=== PATIENT | female | born 1990 | race African-American/Black ===

== ENCOUNTER 2017-02-23 19:33 | Emergency (ER) | payer MEDICAID ==
[2017-02-23] MEDS ORDERED: MECLIZINE HCL 25 MG TABLET PO ONE (20:24)
--- NOTE | 2017-02-23 20:26 | ER Document Report ---
ED Medical Screen (RME) - General Chief Complaint: Dizziness Stated Complaint: DIZZY Notes: This 26-year-old female patient who is 36 weeks reports one to 2 day history of some low back pain and dizzy sensation. She also noticed some vaginal discharge that is new which she thinks maybe her mucous plug. While at work today at [employer] she felt hot, but reports other prescription also complained about it being hot they gave her a belt to put on which she wore for while but it made her feel suffocated so she took it off and felt a little better. She noticed when standing up she would feel weak, feel fainting and felt the need to go to the window to get fresh air. Then she got a headache. She checked her blood sugar and it was fine. She does notice that standing up tends to bring on the symptoms of lightheadedness and feeling like her head is all over the place. When I have her look up-and-down [id number] rapidly it makes the symptoms much worse and causes some nystagmus. I have greeted and performed a rapid initial assessment of this patient. A comprehensive ED assessment and evaluation of the patient, analysis of test results and completion of the medical decision making process will be conducted by additional ED providers. TRAVEL OUTSIDE OF THE [place] IN LAST 30 DAYS: No - Related Data Allergies/Adverse Reactions: Penicillins Allergy (Intermediate, Verified 02/23/17 20:05) Hives Home Medications: Current Home Medications Ferrous Sulfate [Iron] 325 mg PO DAILY 02/23/17 [History] Vit W-Ca,Fe,FA(<1 mg) [ Vitamins] 1 each PO DAILY 02/23/17 [ History] Past Medical History Renal/ Medical History: Denies: Hx Peritoneal Dialysis Physical Exam - Vital signs Vitals: Temp Pulse Resp BP Pulse Ox 98.6 F 106 H 20 127/83 H 99 02/23/17 20:05 02/23/17 20:05 02/23/17 20:05 02/23/17 20:05 02/23/17 20:05 Course - Vital Signs Vital signs: Temp Pulse Resp BP Pulse Ox 98.6 F 106 H 20 127/83 H 99 02/23/17 20:05 02/23/17 20:05 02/23/17 20:05 02/23/17 20:05 02/23/17 20:05
[2017-02-23 21:00] LABS: ABSOLUTE LYMPHOCYTES (AUTO) 1.6 10^3/uL (0.5-4.7); ABSOLUTE MONOCYTES (AUTO) 0.8 10^3/uL (0.1-1.4); ABSOLUTE NEUT (AUTO) 8.3 10^3/uL (1.7-8.2); BASOPHILS % (AUTO) 0.3 % (0-2); EOSINOPHILS % (AUTO) 0.1 % (0-6); HEMATOCRIT 37.6 % (36.0-47.0); HGB HCT DIFFERENCE 1.4; LYMPHOCYTES % (AUTO) 14.7 % (13-45); MEAN CORPUSCULAR HEMOGLOBIN 29.2 pg (27.0-33.4); MEAN CORPUSCULAR HGB CONC 34.4 g/dL (32.0-36.0); MEAN CORPUSCULAR VOLUME 85 fl (80-97); MONOCYTES % (AUTO) 7.6 % (3-13); RED BLOOD COUNT 4.43 10^6/uL (3.72-5.28); SEGMENTED NEUTROPHILS % (AUTO) 77.3 % (42-78); WHITE BLOOD COUNT 10.7 10^3/uL (4.0-10.5)
[2017-02-23 21:01] LABS: APPEARANCE,URINE SLIGHTLY-CLOUDY; BILIRUBIN,URINE NEGATIVE (NEGATIVE); GLUCOSE, URINE NEGATIVE (NEGATIVE); KETONES,URINE NEGATIVE (NEGATIVE); LEUKOCYTE ESTERASE,URINE LARGE (NEGATIVE); NITRITE,URINE NEGATIVE (NEGATIVE); PROTEIN,URINE NEGATIVE (NEGATIVE); URINE SPECIFIC GRAVITY 1.006; UROBILINOGEN,URINE NEGATIVE mg/dL (<2.0)
[2017-02-23 21:12] LABS: ALANINE AMINOTRANSFERASE 17 U/L (9-52); ALKALINE PHOSPHATASE 106 U/L (38-126); ANION GAP 12 (5-19); ASPARTATE AMINO TRANSFERASE 16 U/L (14-36); BILIRUBIN,DIRECT 0.1 mg/dL (0.0-0.4); BILIRUBIN,TOTAL 0.3 mg/dL (0.2-1.3); BLOOD UREA NITROGEN 7 mg/dL (7-20); CALCIUM 9.6 mg/dL (8.4-10.2); CARBON DIOXIDE 19 mmol/L (22-30); CHLORIDE 105 mmol/L (98-107); CREATININE RESULT 0.54 mg/dL (0.52-1.25); GLUCOSE 87 mg/dL (75-110); POTASSIUM 4.6 mmol/L (3.6-5.0); SODIUM 136.1 mmol/L (137-145)
[2017-02-23] MEDS ORDERED: NORMAL SALINE 1000 ML 1,000 ML IV ONE (21:32)
--- NOTE | 2017-02-23 23:54 | ER Document Report ---
ED General - General Chief Complaint: Dizziness Stated Complaint: DIZZY Mode of Arrival: Ambulatory Information source: Patient Notes: 26 y/o F presents to ED c/o intermittently persistent lower back pain over the last 2 days. Reports associated dizziness worse with changing position from sitting to standing and after prolonged standing. States symptoms have been more noticeable while at work today. Reports is approximately 36 weeks , G1. States does not drink much fluids during the day. Denies fever, n/v, abd/ pelvic pain, vaginal bleeding. TRAVEL OUTSIDE OF THE [place] IN LAST 30 DAYS: No - HPI Onset/Duration: Intermittent, Persistent Quality of pain: Achy Severity: Mild Pain Level: 2 Exacerbated by: Standing Relieved by: Sitting Similar symptoms previously: Yes Recently seen / treated by doctor: No - Related Data Allergies/Adverse Reactions: Penicillins Allergy (Intermediate, Verified 02/24/17 16:17) Hives Home Medications: Current Home Medications Ferrous Sulfate [Iron] 325 mg PO DAILY 02/23/17 [History] Vit W-Ca,Fe,FA(<1 mg) [ Vitamins] 1 each PO DAILY 02/23/17 [ History] Past Medical History - General Information source: Patient - Social History Smoking Status: Never Smoker Frequency of alcohol use: None Drug Abuse: None Lives with: Family Family History: Reviewed & Not Pertinent Patient has suicidal ideation: No Patient has homicidal ideation: No - Medical History Medical History: Negative Renal/ Medical History: Denies: Hx Peritoneal Dialysis Surgical Hx: Negative - Immunizations Immunizations up to date: Yes Hx Diphtheria, Pertussis, Tetanus Vaccination: Yes Review of Systems - Review of Systems Constitutional: No symptoms reported EENT: No symptoms reported Cardiovascular: No symptoms reported Respiratory: No symptoms reported Gastrointestinal: No symptoms reported Genitourinary: No symptoms reported Female Genitourinary: See HPI Musculoskeletal: See HPI Skin: No symptoms reported Hematologic/Lymphatic: No symptoms reported Neurological/Psychological: See HPI -: Yes All other systems reviewed and negative Physical Exam - Vital signs Vitals: Temp Pulse Resp BP Pulse Ox 98.6 F 106 H 20 127/83 H 99 02/23/17 20:05 02/23/17 20:05 02/23/17 20:05 02/23/17 20:05 02/23/17 20:05 - General General appearance: Appears well, Alert In distress: None - HEENT Head: Normocephalic, Atraumatic Eyes: Normal Conjunctiva: Normal Extraocular movements intact: Yes Eyelashes: Normal Pupils: PERRL Nerve palsy: No Visual montes normal: Yes Ears: Normal External canal: Normal Tympanic membrane: Normal Sinus: Normal Nasal: Normal Mouth/Lips: Normal Mucous membranes: Normal, Moist Pharynx: Normal Neck: Normal - Respiratory Respiratory status: No respiratory distress Chest status: Nontender Breath sounds: Normal Chest palpation: Normal - Cardiovascular Rhythm: Regular Heart sounds: Normal auscultation Murmur: No Pulses: Normal: Radial, Posterior tibial, Dorsalis pedis Normal capillary refill: Yes - Abdominal Inspection: Normal, Gravid female Distension: No distension Bowel sounds: Normal Tenderness: Nontender. No: Tender, McBurney's point, Iqbal's sign, Guarding, Rebound, Other Organomegaly: No organomegaly - Back Back: Tender - mild tenderness with palpation to bilateral paraspinal musculature at lumbar level. Full ROM without paresthesias or neurologica deficits.. No: Normal, Nontender, Deformity/step-off, CVA tenderness, Vertebra tenderness, Scars, Scoliosis, Wounds, Other - Extremities General upper extremity: Normal inspection, Nontender, Normal color, Normal ROM , Normal strength, Normal temperature. No: Edema General lower extremity: Normal inspection, Nontender, Normal color, Normal ROM , Normal strength, Normal temperature, Normal weight bearing. No: Edema, Pravin' s sign - Neurological Neuro grossly intact: Yes Cognition: Normal Orientation: AAOx4 [place] Coma Scale Eye Opening: Spontaneous Madi Coma Scale Verbal: Oriented Madi Coma Scale Motor: Obeys Commands [place] Coma Scale Total: 15 Speech: Normal Cranial nerves: Normal Cerebellar coordination: Normal Motor strength normal: LUE, RUE, LLE, RLE Additional motor exam normals: Equal photographer helper Sensory: Normal - Psychological Associated symptoms: Normal affect, Normal mood - Skin Skin Temperature: Warm Skin Moisture: Dry Skin Color: Normal Course - Re-evaluation Re-evalutation: 02/23/17 23:30 Pt hemodynamically stable, in no distress, afebrile, non-toxic. Leukocyte esterase and wbc's on Ua. Urine culture obtained. Pt was given 1L NS states feels much better and dizziness resolved. Orthostatic negative. Pt tolerating oral fluids without difficulty or vomiting. Pt states reports has appointment with her Ob-Rouge Miller tomorrow. Pt appears stable for discharge and agrees with home care, follow-up, and ED return precautions. - Vital Signs Vital signs: Temp Pulse Resp BP Pulse Ox 97.6 F 65 16 122/88 H 96 02/24/17 00:22 02/24/17 00:22 02/24/17 00:22 02/24/17 00:22 02/24/17 00:22 - Laboratory Result Diagrams: 02/23/17 20:44 02/23/17 20:44 Laboratory results interpreted by me: 02/23/17 02/23/17 02/23/17 20:44 20:44 20:44 WBC 10.7 H Absolute Neutrophils 8.3 H Sodium 136.1 L Carbon Dioxide 19 L Ur Leukocyte Esterase LARGE H Discharge - Discharge Clinical Impression: Dizziness UTI (urinary tract infection) Qualifiers: Urinary tract infection type: site unspecified Hematuria presence: without hematuria Qualified Code(s): N39.0 - Urinary tract infection, site not specified Condition: Stable Disposition: HOME, SELF-CARE Instructions: Urinary Tract Infection ([facility]), Dizziness ([facility]), Cephalexin ([facility]) , Dehydration ([facility]) Additional Instructions: Drink plenty of fluids. Keep your appointment and follow-up with your primary care provider/Ob-Rouge Miller tomorrow. Return to the emergency department for any worsening symptoms or concerns. Forms: Return to Work Referrals: HUDSON AGUILERA MD [Primary Care Provider] - Follow up tomorrow
[2017-02-24 00:23] VITALS: BP 122/88
== END 2017-02-24 00:22 | disposition home or self-care (01) ==
LOC: ER 19:33
DX: R42 Dizziness and giddiness (principal); N39.0 Urinary tract infection, site not specified; M54.5 Low back pain; Z88.0 Allergy status to penicillin
CPT/HCPCS: 99284; 96360; 36415; 87086; 85025; 80053; 81001; J7030

== ENCOUNTER 2017-02-24 16:16 | Outpatient (CLI) | payer MEDICAID ==
--- NOTE | 2017-02-24 17:25 | Non Stress Test Report ---
Non Stress Test Datetime Report Generated by CPN: 02/24/2017 17:25 DEMOGRAPHIC EGA NST: 36.5 INDICATION Indication for Study: Other Indication for Study (NST) Other: GDM MONITORING Monitor Explained: Monitor Explained; Test Explained; Patient Verbalized Understanding Time on Monitor: 02/24/2017 17:04 Time off Monitor: 02/24/2017 17:24 NST Duration: 20 NST INTERVENTIONS NST Interventions: PO Hydration; Reposition Patient Physician Notified NST: Dr Sims BABY A: [id number] BABY A Movement : Present Contraction Frequency : none FHR Baseline : 125 Accelerations : 15X15 Decelerations : None Variability : Moderate 6-25bpm NST Review: Meets Criteria for Reactive NST NST Review and Verified By : ABjorn Chelsea RN NST Results: Reactive NST REPORT Report Trigger: Send Report
--- NOTE | 2017-02-24 20:30 | L&D Discharge Summary ---
OB Discharge Summary Datetime Report Generated by CPN: 02/24/2017 20:30 DISCHARGE DIAGNOSIS Diagnoses/Symptoms Other: Reactive NST Number of Babies in Womb: 1 Parity: 0 DIET/ACTIVITY/RESTRICTIONS Diet: Regular Activity: Normal Activity TEACHING/INSTRUCTIONS/REFERRALS Instructions Given To: Patient/FOB Instructions Understood: Patient Verbalized Understanding; Support Person Verbalized Understanding Referrals: None Educational Materials- Other: Kick counts DISCHARGE INFORMATION Discharged AMA: No Discharge Date/Time: 02/24/2017 17:28 Discharged To: Home Discharge Provider Name: Dr Sims Accompanied By: FOB Discharge Method: Ambulatory Condition: Stable FOLLOW UP INFORMATION Follow Up With: [facility] Follow Up On: As Scheduled Follow Up Phone Number: [facility] -
--- NOTE | 2017-03-02 22:48 | L&D Discharge Summary ---
OB Discharge Summary Datetime Report Generated by CPN: 03/02/2017 22:45 DISCHARGE DIAGNOSIS Diagnoses/Symptoms Other: Reactive NST Gestation: 36.5 Number of Babies in Womb: 1 Parity: 0 DIET/ACTIVITY/RESTRICTIONS Diet: Regular Activity: Normal Activity TEACHING/INSTRUCTIONS/REFERRALS Instructions Given To: Patient/FOB Instructions Understood: Patient Verbalized Understanding; Support Person Verbalized Understanding Referrals: None Educational Materials- Other: Kick counts DISCHARGE INFORMATION Discharged AMA: No Discharge Date/Time: 02/24/2017 17:28 Discharged To: Home Discharge Provider Name: Dr Sims Accompanied By: FOB Discharge Method: Ambulatory Condition: Stable FOLLOW UP INFORMATION Follow Up With: [facility] Follow Up On: As Scheduled Follow Up Phone Number: [facility] -
--- NOTE | 2017-03-02 22:48 | L&D General Admission ---
General Admit Datetime Report Generated by CPN: 03/02/2017 22:45 INFORMATION Patient Age: 26 (01/27/2017 15:15:QS system process) EDC: 03/19/2017 00:00 (02/24/2017 15:06:Nelly Tran RN) : 1 (02/24/2017 15:06:Nelly Tran RN) Para: 0 (02/24/2017 15:06:Nelly Trna RN) Term: 0 (02/24/2017 15:06:Precious Iqbal RN) : 0 (02/24/2017 15:06:Precious Iqbal RN) Spontaneous Abortions: 0 (02/24/2017 15:06:Precious Iqbal RN) Induced Abortions: 0 (02/24/2017 15:06:Precious Iqbal RN) Livin (02/24/2017 15:06:Precious Iqbal RN) Cesareans: 0 (02/24/2017 15:06:Precious Iqbal RN) VBACs: 0 (02/24/2017 15:06:Precious Iqbal RN) Ectopic: 0 (02/24/2017 15:06:Precious Iqbal RN) Multiple Births: 0 (02/24/2017 15:06:Precious Iqbal RN) Baby, Number in Womb: 1 (02/24/2017 15:06:Precious Iqbal RN) CARE Primary City Attorney: [facility] [facility] (02/24/2017 15:06:Nelly Tran RN) Height (in): 65 (02/24/2017 16:18:QS system process) ALLERGIES Medication Allergy: Yes (02/24/2017 15:06:Nelly Tran RN) Medication Allergies: Penicillins/MO/Hives (02/24/2017) (02/24/2017 16:16:QS system process) Medication Allergies: Penicillins/MO/Hives (02/23/2017) (02/23/2017 20:05:QS system process) Latex Allergy: No Latex Allergies (02/24/2017 15:06:Nelly Tran RN) COMMUNICATION Primary Language: Nigerian (02/24/2017 15:06:Nelly Tran RN) Medical Tx Preferred Language: Nigerian (02/24/2017 15:06:Nelly Tran RN) DEMOGRAPHICS Address: [address] [place] [id number] (01/27/2017 15:15:QS system process) Zipcode: [id number] (01/27/2017 15:15:QS system process) Home (01/27/2017 15:15:QS system process) SSN: [id number] (01/27/2017 15:15:QS system process) Next of Kin Name: BRYAN NOBLE (01/27/2017 15:15:QS system process) Next of Kin (01/27/2017 15:15:QS system process) Next of Kin Relationship: OR (01/27/2017 15:15:QS system process) Date of : 1990 (01/27/2017 15:15:QS system process) Marital Status: Single (01/27/2017 15:15:QS system process) Sex: Female (01/27/2017 15:15:QS system process) Race: (01/27/2017 15:15:QS system process) Ethnicity: Non- or (01/27/2017 15:15:QS system process) Adventism: None (02/24/2017 16:16:QS system process) DRUG AND ALCOHOL USE Alcohol: No (02/24/2017 15:06:Precious Iqbal RN) Cigarettes: Never Smoker. [id number] (02/24/2017 15:06:Precious Iqbal RN) Marijuana: No (02/24/2017 15:06:Precious Iqbal RN) Cocaine: No (02/24/2017 15:06:Precious Iqbal RN) Other Illicit Drugs: No (02/24/2017 15:06:Precious Iqbal RN) VACCINE HISTORY Influenza Vaccine: No (02/24/2017 15:06:Precious Iqbal RN) Pneumococcal Vaccine: No (02/24/2017 15:06:Precious Iqbal RN) Tetanus Vaccine: Yes (02/24/2017 15:06:Precious Iqbal RN) Tdap Vaccine: Yes (02/24/2017 15:06:Precious Iqbal RN) Hepatitis B Vaccine: No (02/24/2017 15:06:Precious Iqbal RN) Feeding Preference: Formula (02/24/2017 15:06:Precious Iqbal RN) Benefit of Breast Feed Discussed: Yes (02/24/2017 15:06:Precious Iqbal RN) Circumcision: Yes (02/24/2017 15:06:Precious Iqbal RN) Classes Attended: No (02/24/2017 15:06:Precious Iqbal RN) Tubal Ligation: No (02/24/2017 15:06:Precious Iqbal RN) Tubal Authorization Signed: N/A (02/24/2017 15:06:Precious Iqbal RN) Consent: N/A (02/24/2017 15:06:Precious Iqbal RN) Consent Signed: N/A (02/24/2017 15:06:Precious Iqbal RN) Plans for Labor and Delivery: None (02/24/2017 15:06:Precious Iqbal RN) Support Person: Kennedy Flores (02/24/2017 15:06:Precious Iqbal RN) Support Person Relationship: Significant Other (02/24/2017 15:06:Precious Iqbal RN) Cultural/Spritual Practice: No (02/24/2017 15:06:Precious Iqbal RN) Spir/Cult Dietary Needs: No (02/24/2017 15:06:Precious Iqbal RN) LIVING SITUATION/DISCHARGE PLAN Living Arrangements: House (02/24/2017 15:06:Precious Iqbal RN) Adequate Access to:: Electric; Heat; Refrigeration; Plumbing/Running water; Phone; Transportation (02/24/2017 15:06:Precious Iqbal RN) WIC Program: Yes (02/24/2017 15:06:Precious Iqbal RN) Discharge Grip Boss Person: LEX (02/24/2017 15:06:Precious Iqbal RN) Person to Help after Discharge: LEX (02/24/2017 15:06:Precious Iqbal RN) Currently Using Commun Resources: No (02/24/2017 15:06:Precious Iqbal RN) Outside Agency/Logistics Intern: No (02/24/2017 15:06:Precious Iqbal RN) Car Seat for Discharge: Yes (02/24/2017 15:06:Precious Iqbal RN) Adoption Requested: No (02/24/2017 15:06:Precious Iqbal RN) Pt Contact w/infant Post : N/A (02/24/2017 15:06:Precious Iqbal RN) LABS Hemoglobin: 13.0 (02/23/2017 20:44:QS system process) Hematocrit: 37.6 (02/23/2017 20:44:QS system process) MCV: 85 (02/23/2017 20:44:QS system process) OB/PREVIOUS HISTORY Current Procedures: Ultrasound; NST (02/24/2017 15:06:Precious Iqbal RN) History of Previous : No (02/24/2017 15:06:Precious Iqbal RN) History of Gestational Diabetes: Yes (02/24/2017 15:06:Precious Iqbal RN) History of PIH: No (02/24/2017 15:06:Precious Iqbal RN) History of Incompetent Cervix: No (02/24/2017 15:06:Precious Iqbal RN) History of Placenta Previa/Abrup: No (02/24/2017 15:06:Precious Iqbal RN) History of Macrosomia: No (02/24/2017 15:06:Precious Iqbal RN) History of IUGR: No (02/24/2017 15:06:Precious Iqbal RN) History of Hemorrhage: No (02/24/2017 15:06:Precious Iqbal RN) History of Loss/Stillborn: No (02/24/2017 15:06:Precious Iqbal RN) History of : No (02/24/2017 15:06:Precious Iqbal RN) History of D (Rh) Sensitization: No (02/24/2017 15:06:Precious Iqbal RN) History Recurrent Loss/Stillborn: No (02/24/2017 15:06:Precious Iqbal RN) History Depression/PP Depression: No (02/24/2017 15:06:Precious Iqbal RN) History of Uterine Anomaly/JALEESA: No (02/24/2017 15:06:Precious Iqbal RN) History of Infertility: No (02/24/2017 15:06:Precious Iqbal RN) History of ART Treatment: No (02/24/2017 15:06:Precious Iqbal RN) History of JALEESA: No (02/24/2017 15:06:Precious Iqbal RN) Comments Obstetrical History: G1: current (02/24/2017 15:06:Precious Iqbal RN) MEDICAL HISTORY Med Hx Diabetes: Yes (02/24/2017 15:06:Precious Iqbal RN) Diabetes Type: Gestational Diabetes (02/24/2017 15:06:Precious Iqabl RN) Med Hx Hypertension: No (02/24/2017 15:06:Precious Iqbal RN) Med Hx Heart Disease: No (02/24/2017 15:06:Precious Iqbal RN) Med Hx Autoimmune Disorder: No (02/24/2017 15:06:Precious Iqbal RN) Med Hx Kidney Disease/UTI: No (02/24/2017 15:06:Precious Iqbal RN) Med Hx Neurologic/Epilepsy: No (02/24/2017 15:06:Precious Iqbal RN) Med Hx Psychiatric Disorders: No (02/24/2017 15:06:Precious Iqbal RN) Med Hx Hepatitis/Liver Disease: No (02/24/2017 15:06:Precious Iqbal RN) Med Hx Varicosities/Phlebitis: No (02/24/2017 15:06:Precious Iqbal RN) Med Hx Thyroid Dysfunction: No (02/24/2017 15:06:Precious Iqbal RN) Med Hx Trauma/Violence: No (02/24/2017 15:06:Precious Iqbal RN) Med Hx Blood Transfusion: No (02/24/2017 15:06:Precious Iqbal RN) Med Hx Pulmonary (Asthma,TB): No (02/24/2017 15:06:Precious Iqbal RN) Med Hx Breast: No (02/24/2017 15:06:Precious Iqbal RN) Med Hx CRUISE COUNSELOR Surgery: No (02/24/2017 15:06:Precious Iqbal RN) Med Hx Hospitalization/Surgery: No (02/24/2017 15:06:Precious Iqbal RN) Med Hx Anesthetic Complications: No (02/24/2017 15:06:Precious Iqbal RN) Med Hx Abnormal Pap Smear: No (02/24/2017 15:06:Precious Iqbal RN) Other Medical Diseases: No (02/24/2017 15:06:Precious Iqbal RN) Med Hx Significant Family Hx: No (02/24/2017 15:06:Precious Iqbal RN) INFECTIOUS HISTORY Inf Hx Gonorrhea: No (02/24/2017 15:06:Precious Iqbal RN) Inf Hx Chlamydia: No (02/24/2017 15:06:Precious Iqbal RN) Inf Hx Syphilis: No (02/24/2017 15:06:Precious Iqbal RN) Inf Hx HIV/AIDS: No (02/24/2017 15:06:Precious Iqbal RN) Inf Hx Human Papilloma Virus: No (02/24/2017 15:06:Precious Iqbal RN) Inf Hx Pt/Partner Genital Herpes: No (02/24/2017 15:06:Precious Iqbal RN) Inf Hx Tuberculosis/Exposure: No (02/24/2017 15:06:Precious Iqbal RN) Inf Hx Hepatitis B,C: No (02/24/2017 15:06:Precious Iqabl RN) Inf Hx Rash or Viral Illness: No (02/24/2017 15:06:Precious Iqbal RN) GENETIC HISTORY Gen Hx Age >=35 at ADRIANA: No (02/24/2017 15:06:Precious Iqbal RN) Gen Hx Thalassemia: No (02/24/2017 15:06:Precious Iqbal RN) Gen Hx Congenital Heart Defect: No (02/24/2017 15:06:Precious Iqbal RN) Gen Hx Neural Tube Defect: No (02/24/2017 15:06:Precious Iqbal RN) Gen Hx Down's Syndrome: No (02/24/2017 15:06:Precious Iqbal RN) Gen Hx Wang-Sachs: No (02/24/2017 15:06:Precious Iqbal RN) Gen Hx Toshia: No (02/24/2017 15:06:Precious Iqbal RN) Gen Hx Familial Dysautonomia: No (02/24/2017 15:06:Precious Iqbal RN) Gen Hx Sickle Cell Disease/Trait: No (02/24/2017 15:06:Precious Iqbal RN) Gen Hx Hemophilia/Blood Disorder: No (02/24/2017 15:06:Precious Iqbal RN) Gen Hx Muscular Dystrophy: No (02/24/2017 15:06:Precious Iqbal RN) Gen Hx Cystic Fibrosis: No (02/24/2017 15:06:Precious Iqbal RN) Gen Hx Huntingtons Chorea: No (02/24/2017 15:06:Precious Iqbal RN) Gen Hx Mental Retardation/Autism: No (02/24/2017 15:06:Precious Iqbal RN) Gen Hx Tested for Fragile X: No (02/24/2017 15:06:Precious Iqbal RN) Gen Hx Other Inher/Chromosomal: No (02/24/2017 15:06:Precious Iqbal RN) Gen Hx Maternal Metabolic DO: No (02/24/2017 15:06:Precious Iqbal RN) Gen Hx Pt Father or FOB Defect: No (02/24/2017 15:06:Precious Iqbal RN) Gen Hx Other Genetic History: No (02/24/2017 15:06:Precious Iqbal RN) Gen Hx Drugs/Meds since LMP: Yes (02/24/2017 15:06:Precious Iqbal RN) Gen Hx Medications: pnv, iron (02/24/2017 15:06:Precious Iqbal RN)
--- NOTE | 2017-03-03 04:48 | L&D General Admission ---
General Admit Datetime Report Generated by CPN: 03/03/2017 04:46 INFORMATION Patient Age: 26 (01/27/2017 15:15:QS system process) EDC: 03/19/2017 00:00 (02/24/2017 15:06:Nelly Tran RN) : 1 (02/24/2017 15:06:Nelly Tran RN) Para: 0 (02/24/2017 15:06:Nelly Tran RN) Term: 0 (02/24/2017 15:06:Precious Iqbal RN) : 0 (02/24/2017 15:06:Precious Iqbal RN) Spontaneous Abortions: 0 (02/24/2017 15:06:Precious Iqbal RN) Induced Abortions: 0 (02/24/2017 15:06:Precious Iqbal RN) Livin (02/24/2017 15:06:Precious Iqbal RN) Cesareans: 0 (02/24/2017 15:06:Precious Iqbal RN) VBACs: 0 (02/24/2017 15:06:Precious Iqbal RN) Ectopic: 0 (02/24/2017 15:06:Precious Iqbal RN) Multiple Births: 0 (02/24/2017 15:06:Precious Iqbal RN) Baby, Number in Womb: 1 (02/24/2017 15:06:Precious Iqbal RN) CARE Primary Hardboard Panel Printer: [employer] (02/24/2017 15:06:Nelly Tran RN) Height (in): 65 (02/24/2017 16:18:QS system process) ALLERGIES Medication Allergy: Yes (02/24/2017 15:06:Nelly Tran RN) Medication Allergies: Penicillins/MO/Hives (02/24/2017) (02/24/2017 16:16:QS system process) Medication Allergies: Penicillins/MO/Hives (02/23/2017) (02/23/2017 20:05:QS system process) Latex Allergy: No Latex Allergies (02/24/2017 15:06:Nelly Tran RN) COMMUNICATION Primary Language: Mozambican (02/24/2017 15:06:Nelly Tran RN) Medical Tx Preferred Language: Mozambican (02/24/2017 15:06:Nelly Tran RN) DEMOGRAPHICS Address: [address] [place] [id number] (01/27/2017 15:15:QS system process) Zipcode: [address] (01/27/2017 15:15:QS system process) Home (01/27/2017 15:15:QS system process) SSN: [id number] (01/27/2017 15:15:QS system process) Next of Kin Name: BRYAN NOBLE (01/27/2017 15:15:QS system process) Next of Kin (01/27/2017 15:15:QS system process) Next of Kin Relationship: OR (01/27/2017 15:15:QS system process) Date of : 1990 (01/27/2017 15:15:QS system process) Marital Status: Single (01/27/2017 15:15:QS system process) Sex: Female (01/27/2017 15:15:QS system process) Race: (01/27/2017 15:15:QS system process) Ethnicity: Non- or (01/27/2017 15:15:QS system process) Druze: None (02/24/2017 16:16:QS system process) DRUG AND ALCOHOL USE Alcohol: No (02/24/2017 15:06:Precious Iqbal RN) Cigarettes: Never Smoker. [id number] (02/24/2017 15:06:Precious Iqbal RN) Marijuana: No (02/24/2017 15:06:Precious Iqbal RN) Cocaine: No (02/24/2017 15:06:Precious Iqbal RN) Other Illicit Drugs: No (02/24/2017 15:06:Precious Iqbal RN) VACCINE HISTORY Influenza Vaccine: No (02/24/2017 15:06:Precious Iqbal RN) Pneumococcal Vaccine: No (02/24/2017 15:06:Precious Iqbal RN) Tetanus Vaccine: Yes (02/24/2017 15:06:Precious Iqbal RN) Tdap Vaccine: Yes (02/24/2017 15:06:Precious Iqbal RN) Hepatitis B Vaccine: No (02/24/2017 15:06:Precious Iqbal RN) Feeding Preference: Formula (02/24/2017 15:06:Precious Iqbal RN) Benefit of Breast Feed Discussed: Yes (02/24/2017 15:06:Precious Iqbal RN) Circumcision: Yes (02/24/2017 15:06:Precious Iqbal RN) Classes Attended: No (02/24/2017 15:06:Precious Iqbal RN) Tubal Ligation: No (02/24/2017 15:06:Precious Iqbal RN) Tubal Authorization Signed: N/A (02/24/2017 15:06:Precious Iqbal RN) Consent: N/A (02/24/2017 15:06:Precious Iqbal RN) Consent Signed: N/A (02/24/2017 15:06:Precious Iqbal RN) Plans for Labor and Delivery: None (02/24/2017 15:06:Precious Iqbal RN) Support Person: Kennedy Flores (02/24/2017 15:06:Precious Iqbal RN) Support Person Relationship: Significant Other (02/24/2017 15:06:Precious Iqbal RN) Cultural/Spritual Practice: No (02/24/2017 15:06:Precious Iqbal RN) Spir/Cult Dietary Needs: No (02/24/2017 15:06:Precious Iqbal RN) LIVING SITUATION/DISCHARGE PLAN Living Arrangements: House (02/24/2017 15:06:Precious Iqbal RN) Adequate Access to:: Electric; Heat; Refrigeration; Plumbing/Running water; Phone; Transportation (02/24/2017 15:06:Precious Iqbal RN) WIC Program: Yes (02/24/2017 15:06:Precious Iqbal RN) Discharge Soaker Hides Person: LEX (02/24/2017 15:06:Precious Iqbal RN) Person to Help after Discharge: LEX (02/24/2017 15:06:Precious Iqbal RN) Currently Using Commun Resources: No (02/24/2017 15:06:Precious Iqbal RN) Outside Agency/Radio Assembler: No (02/24/2017 15:06:Precious Iqbal RN) Car Seat for Discharge: Yes (02/24/2017 15:06:Precious Iqbal RN) Adoption Requested: No (02/24/2017 15:06:Precious Iqbal RN) Pt Contact w/infant Post : N/A (02/24/2017 15:06:Precious Iqbal RN) LABS Hemoglobin: 13.0 (02/23/2017 20:44:QS system process) Hematocrit: 37.6 (02/23/2017 20:44:QS system process) MCV: 85 (02/23/2017 20:44:QS system process) OB/PREVIOUS HISTORY Current Procedures: Ultrasound; NST (02/24/2017 15:06:Precious Iqbal RN) History of Previous : No (02/24/2017 15:06:Precious Iqbal RN) History of Gestational Diabetes: Yes (02/24/2017 15:06:Precious Iqbal RN) History of PIH: No (02/24/2017 15:06:Precious Iqbal RN) History of Incompetent Cervix: No (02/24/2017 15:06:Precious Iqbal RN) History of Placenta Previa/Abrup: No (02/24/2017 15:06:Precious Iqbal RN) History of Macrosomia: No (02/24/2017 15:06:Precious Iqbal RN) History of IUGR: No (02/24/2017 15:06:Precious Iqbal RN) History of Hemorrhage: No (02/24/2017 15:06:Precious Iqbal RN) History of Loss/Stillborn: No (02/24/2017 15:06:Precious Iqbal RN) History of : No (02/24/2017 15:06:Precious Iqbal RN) History of D (Rh) Sensitization: No (02/24/2017 15:06:Precious Iqbal RN) History Recurrent Loss/Stillborn: No (02/24/2017 15:06:Precious Iqbal RN) History Depression/PP Depression: No (02/24/2017 15:06:Precious Iqbal RN) History of Uterine Anomaly/JALEESA: No (02/24/2017 15:06:Preciosu Iqbal RN) History of Infertility: No (02/24/2017 15:06:Precious Iqbal RN) History of ART Treatment: No (02/24/2017 15:06:Precious Iqbal RN) History of JALEESA: No (02/24/2017 15:06:Precious Iqbal RN) Comments Obstetrical History: G1: current (02/24/2017 15:06:Precious Iqbal RN) MEDICAL HISTORY Med Hx Diabetes: Yes (02/24/2017 15:06:Precious Iqbal RN) Diabetes Type: Gestational Diabetes (02/24/2017 15:06:Precious Iqbal RN) Med Hx Hypertension: No (02/24/2017 15:06:Precious Iqbal RN) Med Hx Heart Disease: No (02/24/2017 15:06:Precious Iqbal RN) Med Hx Autoimmune Disorder: No (02/24/2017 15:06:Precious Iqbal RN) Med Hx Kidney Disease/UTI: No (02/24/2017 15:06:Precious Iqbal RN) Med Hx Neurologic/Epilepsy: No (02/24/2017 15:06:Prceious Iqbal RN) Med Hx Psychiatric Disorders: No (02/24/2017 15:06:Precious Iqbal RN) Med Hx Hepatitis/Liver Disease: No (02/24/2017 15:06:Precious Iqbal RN) Med Hx Varicosities/Phlebitis: No (02/24/2017 15:06:Precious Iqbal RN) Med Hx Thyroid Dysfunction: No (02/24/2017 15:06:Precious Iqbal RN) Med Hx Trauma/Violence: No (02/24/2017 15:06:Precious Iqbal RN) Med Hx Blood Transfusion: No (02/24/2017 15:06:Precious Iqbal RN) Med Hx Pulmonary (Asthma,TB): No (02/24/2017 15:06:Precious Iqbal RN) Med Hx Breast: No (02/24/2017 15:06:Precious Iqbal RN) Med Hx LOCKSTITCH FRONT MAKER Surgery: No (02/24/2017 15:06:Precious Iqbal RN) Med Hx Hospitalization/Surgery: No (02/24/2017 15:06:Precious Iqbal RN) Med Hx Anesthetic Complications: No (02/24/2017 15:06:Precious Iqbal RN) Med Hx Abnormal Pap Smear: No (02/24/2017 15:06:Precious Iqbal RN) Other Medical Diseases: No (02/24/2017 15:06:Precious Iqbal RN) Med Hx Significant Family Hx: No (02/24/2017 15:06:Precious Iqbal RN) INFECTIOUS HISTORY Inf Hx Gonorrhea: No (02/24/2017 15:06:Precious Iqbal RN) Inf Hx Chlamydia: No (02/24/2017 15:06:Precious Iqbal RN) Inf Hx Syphilis: No (02/24/2017 15:06:Precious Iqbal RN) Inf Hx HIV/AIDS: No (02/24/2017 15:06:Precious Iqbal RN) Inf Hx Human Papilloma Virus: No (02/24/2017 15:06:Precious Iqbal RN) Inf Hx Pt/Partner Genital Herpes: No (02/24/2017 15:06:Precious Iqbal RN) Inf Hx Tuberculosis/Exposure: No (02/24/2017 15:06:Precious Iqbal RN) Inf Hx Hepatitis B,C: No (02/24/2017 15:06:Precious Iqbal RN) Inf Hx Rash or Viral Illness: No (02/24/2017 15:06:Precious Iqbal RN) GENETIC HISTORY Gen Hx Age >=35 at ADRIANA: No (02/24/2017 15:06:Precious Iqbal RN) Gen Hx Thalassemia: No (02/24/2017 15:06:Precious Iqbal RN) Gen Hx Congenital Heart Defect: No (02/24/2017 15:06:Precious Iqbal RN) Gen Hx Neural Tube Defect: No (02/24/2017 15:06:Precious Iqbal RN) Gen Hx Down's Syndrome: No (02/24/2017 15:06:Precious Iqbal RN) Gen Hx Wang-Sachs: No (02/24/2017 15:06:Precious Iqbal RN) Gen Hx Toshia: No (02/24/2017 15:06:Precious Iqbal RN) Gen Hx Familial Dysautonomia: No (02/24/2017 15:06:Precious Iqbal RN) Gen Hx Sickle Cell Disease/Trait: No (02/24/2017 15:06:Precious Iqbal RN) Gen Hx Hemophilia/Blood Disorder: No (02/24/2017 15:06:Precious Iqbal RN) Gen Hx Muscular Dystrophy: No (02/24/2017 15:06:Precious Iqbal RN) Gen Hx Cystic Fibrosis: No (02/24/2017 15:06:Precious Iqbal RN) Gen Hx Huntingtons Chorea: No (02/24/2017 15:06:Precious Iqbal RN) Gen Hx Mental Retardation/Autism: No (02/24/2017 15:06:Precious Iqbal RN) Gen Hx Tested for Fragile X: No (02/24/2017 15:06:Precious Iqbal RN) Gen Hx Other Inher/Chromosomal: No (02/24/2017 15:06:Precious Iqbal RN) Gen Hx Maternal Metabolic DO: No (02/24/2017 15:06:Precious Iqbal RN) Gen Hx Pt Father or FOB Defect: No (02/24/2017 15:06:Precious Iqbal RN) Gen Hx Other Genetic History: No (02/24/2017 15:06:Precious Iqabl RN) Gen Hx Drugs/Meds since LMP: Yes (02/24/2017 15:06:Precious Iqbal RN) Gen Hx Medications: pnv, iron (02/24/2017 15:06:Precious Iqbal RN)
--- NOTE | 2017-03-03 04:48 | L&D Discharge Summary ---
OB Discharge Summary Datetime Report Generated by CPN: 03/03/2017 04:46 DISCHARGE DIAGNOSIS Diagnoses/Symptoms Other: Reactive NST Gestation: 36.5 Number of Babies in Womb: 1 Parity: 0 DIET/ACTIVITY/RESTRICTIONS Diet: Regular Activity: Normal Activity TEACHING/INSTRUCTIONS/REFERRALS Instructions Given To: Patient/FOB Instructions Understood: Patient Verbalized Understanding; Support Person Verbalized Understanding Referrals: None Educational Materials- Other: Kick counts DISCHARGE INFORMATION Discharged AMA: No Discharge Date/Time: 02/24/2017 17:28 Discharged To: Home Discharge Provider Name: Dr Sims Accompanied By: FOB Discharge Method: Ambulatory Condition: Stable FOLLOW UP INFORMATION Follow Up With: [facility] Follow Up On: As Scheduled Follow Up Phone Number: [facility] -
--- NOTE | 2017-03-03 10:48 | L&D Discharge Summary ---
OB Discharge Summary Datetime Report Generated by CPN: 03/03/2017 10:45 DISCHARGE DIAGNOSIS Diagnoses/Symptoms Other: Reactive NST Gestation: 36.5 Number of Babies in Womb: 1 Parity: 0 DIET/ACTIVITY/RESTRICTIONS Diet: Regular Activity: Normal Activity TEACHING/INSTRUCTIONS/REFERRALS Instructions Given To: Patient/FOB Instructions Understood: Patient Verbalized Understanding; Support Person Verbalized Understanding Referrals: None Educational Materials- Other: Kick counts DISCHARGE INFORMATION Discharged AMA: No Discharge Date/Time: 02/24/2017 17:28 Discharged To: Home Discharge Provider Name: Dr Sims Accompanied By: FOB Discharge Method: Ambulatory Condition: Stable FOLLOW UP INFORMATION Follow Up With: [facility] Follow Up On: As Scheduled Follow Up Phone Number: [facility] -
--- NOTE | 2017-03-03 10:48 | L&D General Admission ---
General Admit Datetime Report Generated by CPN: 03/03/2017 10:45 INFORMATION Patient Age: 26 (01/27/2017 15:15:QS system process) EDC: 03/19/2017 00:00 (02/24/2017 15:06:Nelly Tran RN) : 1 (02/24/2017 15:06:Nelly Tran RN) Para: 0 (02/24/2017 15:06:Nelly Tran RN) Term: 0 (02/24/2017 15:06:Precious Iqbal RN) : 0 (02/24/2017 15:06:Precious Iqbal RN) Spontaneous Abortions: 0 (02/24/2017 15:06:Precious Iqbal RN) Induced Abortions: 0 (02/24/2017 15:06:Precious Iqbal RN) Livin (02/24/2017 15:06:Precious Iqbal RN) Cesareans: 0 (02/24/2017 15:06:Precious Iqbal RN) VBACs: 0 (02/24/2017 15:06:Precious Iqbal RN) Ectopic: 0 (02/24/2017 15:06:Precious Iqbal RN) Multiple Births: 0 (02/24/2017 15:06:Precious Iqbal RN) Baby, Number in Womb: 1 (02/24/2017 15:06:Precious Iqbal RN) CARE Primary Switch Maker: [employer] (02/24/2017 15:06:Nelly Tran RN) Height (in): 65 (02/24/2017 16:18:QS system process) ALLERGIES Medication Allergy: Yes (02/24/2017 15:06:Nelly Tran RN) Medication Allergies: Penicillins/MO/Hives (02/24/2017) (02/24/2017 16:16:QS system process) Medication Allergies: Penicillins/MO/Hives (02/23/2017) (02/23/2017 20:05:QS system process) Latex Allergy: No Latex Allergies (02/24/2017 15:06:Nelly Tran RN) COMMUNICATION Primary Language: Serbian (02/24/2017 15:06:Nelly Tran RN) Medical Tx Preferred Language: Serbian (02/24/2017 15:06:Nelly Tran RN) DEMOGRAPHICS Address: [address] [place] [id number] (01/27/2017 15:15:QS system process) Zipcode: [address] (01/27/2017 15:15:QS system process) Home (01/27/2017 15:15:QS system process) SSN: [id number] (01/27/2017 15:15:QS system process) Next of Kin Name: BRYAN NOBLE (01/27/2017 15:15:QS system process) Next of Kin (01/27/2017 15:15:QS system process) Next of Kin Relationship: OR (01/27/2017 15:15:QS system process) Date of : 1990 (01/27/2017 15:15:QS system process) Marital Status: Single (01/27/2017 15:15:QS system process) Sex: Female (01/27/2017 15:15:QS system process) Race: (01/27/2017 15:15:QS system process) Ethnicity: Non- or (01/27/2017 15:15:QS system process) Yazidi: None (02/24/2017 16:16:QS system process) DRUG AND ALCOHOL USE Alcohol: No (02/24/2017 15:06:Precious Iqbal RN) Cigarettes: Never Smoker. [id number] (02/24/2017 15:06:Precious Iqbal RN) Marijuana: No (02/24/2017 15:06:Precious Iqbal RN) Cocaine: No (02/24/2017 15:06:Precious Iqbal RN) Other Illicit Drugs: No (02/24/2017 15:06:Precious Iqbal RN) VACCINE HISTORY Influenza Vaccine: No (02/24/2017 15:06:Precious Iqbal RN) Pneumococcal Vaccine: No (02/24/2017 15:06:Precious Iqbal RN) Tetanus Vaccine: Yes (02/24/2017 15:06:Precious Iqbal RN) Tdap Vaccine: Yes (02/24/2017 15:06:Precious Iqbal RN) Hepatitis B Vaccine: No (02/24/2017 15:06:Precious Iqbal RN) Feeding Preference: Formula (02/24/2017 15:06:Precious Iqbal RN) Benefit of Breast Feed Discussed: Yes (02/24/2017 15:06:Precious Iqbal RN) Circumcision: Yes (02/24/2017 15:06:Precious Iqbal RN) Classes Attended: No (02/24/2017 15:06:Precious Iqbal RN) Tubal Ligation: No (02/24/2017 15:06:Precious Iqbal RN) Tubal Authorization Signed: N/A (02/24/2017 15:06:Precious Iqbal RN) Consent: N/A (02/24/2017 15:06:Precious Iqbal RN) Consent Signed: N/A (02/24/2017 15:06:Precious Iqbal RN) Plans for Labor and Delivery: None (02/24/2017 15:06:Precious Iqbal RN) Support Person: Kennedy Flores (02/24/2017 15:06:Precious Iqbal RN) Support Person Relationship: Significant Other (02/24/2017 15:06:Precious Iqbal RN) Cultural/Spritual Practice: No (02/24/2017 15:06:Precious Iqbal RN) Spir/Cult Dietary Needs: No (02/24/2017 15:06:Precious Iqbal RN) LIVING SITUATION/DISCHARGE PLAN Living Arrangements: House (02/24/2017 15:06:Precious Iqbal RN) Adequate Access to:: Electric; Heat; Refrigeration; Plumbing/Running water; Phone; Transportation (02/24/2017 15:06:Precious Iqbal RN) WIC Program: Yes (02/24/2017 15:06:Precious Iqbal RN) Discharge Records Manager Person: LEX (02/24/2017 15:06:Precious Iqbal RN) Person to Help after Discharge: LEX (02/24/2017 15:06:Precious Iqbal RN) Currently Using Commun Resources: No (02/24/2017 15:06:Precious Iqbal RN) Outside Agency/Chinchilla Machine Operator: No (02/24/2017 15:06:Precious Iqbal RN) Car Seat for Discharge: Yes (02/24/2017 15:06:Precious Iqbal RN) Adoption Requested: No (02/24/2017 15:06:Precious Iqbal RN) Pt Contact w/infant Post : N/A (02/24/2017 15:06:Precious Iqbal RN) LABS Hemoglobin: 13.0 (02/23/2017 20:44:QS system process) Hematocrit: 37.6 (02/23/2017 20:44:QS system process) MCV: 85 (02/23/2017 20:44:QS system process) OB/PREVIOUS HISTORY Current Procedures: Ultrasound; NST (02/24/2017 15:06:Precious Iqbal RN) History of Previous : No (02/24/2017 15:06:Precious Iqbal RN) History of Gestational Diabetes: Yes (02/24/2017 15:06:Precious Iqbal RN) History of PIH: No (02/24/2017 15:06:Precious Iqbal RN) History of Incompetent Cervix: No (02/24/2017 15:06:Precious Iqbal RN) History of Placenta Previa/Abrup: No (02/24/2017 15:06:Precious Iqbal RN) History of Macrosomia: No (02/24/2017 15:06:Precious Iqbal RN) History of IUGR: No (02/24/2017 15:06:Precious Iqbal RN) History of Hemorrhage: No (02/24/2017 15:06:Precious Iqbal RN) History of Loss/Stillborn: No (02/24/2017 15:06:Precious Iqbal RN) History of : No (02/24/2017 15:06:Precious Iqbal RN) History of D (Rh) Sensitization: No (02/24/2017 15:06:Precious Iqbal RN) History Recurrent Loss/Stillborn: No (02/24/2017 15:06:Precious Iqbal RN) History Depression/PP Depression: No (02/24/2017 15:06:Preciosu Iqbal RN) History of Uterine Anomaly/JALEESA: No (02/24/2017 15:06:Precious Iqbal RN) History of Infertility: No (02/24/2017 15:06:Precious Iqbal RN) History of ART Treatment: No (02/24/2017 15:06:Precious Iqbal RN) History of JALEESA: No (02/24/2017 15:06:Precious Iqbal RN) Comments Obstetrical History: G1: current (02/24/2017 15:06:Precious Iqbal RN) MEDICAL HISTORY Med Hx Diabetes: Yes (02/24/2017 15:06:Precious Iqbal RN) Diabetes Type: Gestational Diabetes (02/24/2017 15:06:Precious Iqbal RN) Med Hx Hypertension: No (02/24/2017 15:06:Precious Iqbal RN) Med Hx Heart Disease: No (02/24/2017 15:06:Precious Iqbal RN) Med Hx Autoimmune Disorder: No (02/24/2017 15:06:Precious Iqbal RN) Med Hx Kidney Disease/UTI: No (02/24/2017 15:06:Precious Iqbal RN) Med Hx Neurologic/Epilepsy: No (02/24/2017 15:06:Precious Iqbal RN) Med Hx Psychiatric Disorders: No (02/24/2017 15:06:Precious Iqbal RN) Med Hx Hepatitis/Liver Disease: No (02/24/2017 15:06:Precious Iqbal RN) Med Hx Varicosities/Phlebitis: No (02/24/2017 15:06:Precious Iqbal RN) Med Hx Thyroid Dysfunction: No (02/24/2017 15:06:Precious Iqbal RN) Med Hx Trauma/Violence: No (02/24/2017 15:06:Precious Iqbal RN) Med Hx Blood Transfusion: No (02/24/2017 15:06:Precious Iqbal RN) Med Hx Pulmonary (Asthma,TB): No (02/24/2017 15:06:Precious Iqbal RN) Med Hx Breast: No (02/24/2017 15:06:Precious Iqbal RN) Med Hx CURING MACHINE OPERATOR Surgery: No (02/24/2017 15:06:Precious Iqbal RN) Med Hx Hospitalization/Surgery: No (02/24/2017 15:06:Precious Iqbal RN) Med Hx Anesthetic Complications: No (02/24/2017 15:06:Precious Iqbal RN) Med Hx Abnormal Pap Smear: No (02/24/2017 15:06:Precious Iqbal RN) Other Medical Diseases: No (02/24/2017 15:06:Precious Iqbal RN) Med Hx Significant Family Hx: No (02/24/2017 15:06:Precious Iqbal RN) INFECTIOUS HISTORY Inf Hx Gonorrhea: No (02/24/2017 15:06:Precious Iqbal RN) Inf Hx Chlamydia: No (02/24/2017 15:06:Precious Iqbal RN) Inf Hx Syphilis: No (02/24/2017 15:06:Precious Iqbal RN) Inf Hx HIV/AIDS: No (02/24/2017 15:06:Precious Iqbal RN) Inf Hx Human Papilloma Virus: No (02/24/2017 15:06:Precious Iqbal RN) Inf Hx Pt/Partner Genital Herpes: No (02/24/2017 15:06:Precious Iqbal RN) Inf Hx Tuberculosis/Exposure: No (02/24/2017 15:06:Precious Iqbal RN) Inf Hx Hepatitis B,C: No (02/24/2017 15:06:Precious Iqbal RN) Inf Hx Rash or Viral Illness: No (02/24/2017 15:06:Precious Iqbal RN) GENETIC HISTORY Gen Hx Age >=35 at ADRIANA: No (02/24/2017 15:06:Precious Iqbal RN) Gen Hx Thalassemia: No (02/24/2017 15:06:Precious Iqbal RN) Gen Hx Congenital Heart Defect: No (02/24/2017 15:06:Precious Iqbal RN) Gen Hx Neural Tube Defect: No (02/24/2017 15:06:Precious Iqbal RN) Gen Hx Down's Syndrome: No (02/24/2017 15:06:Precious Iqbal RN) Gen Hx Wang-Sachs: No (02/24/2017 15:06:Precious Iqbal RN) Gen Hx Toshia: No (02/24/2017 15:06:Precious Iqbal RN) Gen Hx Familial Dysautonomia: No (02/24/2017 15:06:Precious Iqbal RN) Gen Hx Sickle Cell Disease/Trait: No (02/24/2017 15:06:Precious Iqbal RN) Gen Hx Hemophilia/Blood Disorder: No (02/24/2017 15:06:Precious Iqbal RN) Gen Hx Muscular Dystrophy: No (02/24/2017 15:06:Precious Iqbal RN) Gen Hx Cystic Fibrosis: No (02/24/2017 15:06:Precious Iqbal RN) Gen Hx Huntingtons Chorea: No (02/24/2017 15:06:Precious Iqbal RN) Gen Hx Mental Retardation/Autism: No (02/24/2017 15:06:Precious Iqbal RN) Gen Hx Tested for Fragile X: No (02/24/2017 15:06:Precious Iqbal RN) Gen Hx Other Inher/Chromosomal: No (02/24/2017 15:06:Precious Iqbal RN) Gen Hx Maternal Metabolic DO: No (02/24/2017 15:06:Precious Iqbal RN) Gen Hx Pt Father or FOB Defect: No (02/24/2017 15:06:Precious Iqbal RN) Gen Hx Other Genetic History: No (02/24/2017 15:06:Precious Iqbal RN) Gen Hx Drugs/Meds since LMP: Yes (02/24/2017 15:06:Precious Iqbal RN) Gen Hx Medications: pnv, iron (02/24/2017 15:06:Precious Iqbal RN)
== END 2017-02-24 17:28 | disposition home or self-care (01) ==
LOC: LC 16:16
PROVIDERS: ATTEND Obstetrics & Gynecology
PROC: 4A1HXCZ Monitoring of Products of Conception, Cardiac Rate, External Approach (ICD-10-PCS; principal; 2017-02-24)
DX: O24.419 Gestational diabetes mellitus in pregnancy, unspecified control (principal); Z3A.36 36 weeks gestation of pregnancy
CPT/HCPCS: 59025

== ENCOUNTER 2017-03-03 11:52 | Outpatient (CLI) | payer MEDICAID ==
[2017-03-03 12:39] LABS: APPEARANCE,URINE SLIGHTLY-CLOUDY; BILIRUBIN,URINE NEGATIVE (NEGATIVE); GLUCOSE, URINE NEGATIVE (NEGATIVE); KETONES,URINE NEGATIVE (NEGATIVE); LEUKOCYTE ESTERASE,URINE LARGE (NEGATIVE); NITRITE,URINE NEGATIVE (NEGATIVE); PROTEIN,URINE NEGATIVE (NEGATIVE); URINE SPECIFIC GRAVITY 1.004; UROBILINOGEN,URINE NEGATIVE mg/dL (<2.0)
[2017-03-03 12:50] LABS: ABSOLUTE LYMPHOCYTES (AUTO) 1.6 10^3/uL (0.5-4.7); ABSOLUTE MONOCYTES (AUTO) 0.6 10^3/uL (0.1-1.4); ABSOLUTE NEUT (AUTO) 4.9 10^3/uL (1.7-8.2); BASOPHILS % (AUTO) 0.3 % (0-2); EOSINOPHILS % (AUTO) 0.3 % (0-6); HEMATOCRIT 36.3 % (36.0-47.0); HEMOGLOBIN 12.6 g/dL (12.0-15.5); HGB HCT DIFFERENCE 1.5; LYMPHOCYTES % (AUTO) 21.6 % (13-45); MEAN CORPUSCULAR HEMOGLOBIN 29.2 pg (27.0-33.4); MEAN CORPUSCULAR HGB CONC 34.7 g/dL (32.0-36.0); MEAN CORPUSCULAR VOLUME 84 fl (80-97); MONOCYTES % (AUTO) 8.8 % (3-13); RED BLOOD COUNT 4.31 10^6/uL (3.72-5.28); RED CELL DISTRIBUTION WIDTH 14.2 % (11.5-14.0); WHITE BLOOD COUNT 7.2 10^3/uL (4.0-10.5)
[2017-03-03 13:00] LABS: URINE BARBITURATES SCREEN NEGATIVE; URINE METHADONE SCREEN NEGATIVE; URINE OPIATES LOW NEGATIVE; URINE PHENCYCLIDINE SCREEN NEGATIVE
[2017-03-03 13:10] LABS: ALANINE AMINOTRANSFERASE 18 U/L (9-52); ALBUMIN 3.7 g/dL (3.5-5.0); ALKALINE PHOSPHATASE 109 U/L (38-126); ANION GAP 11 (5-19); ASPARTATE AMINO TRANSFERASE 18 U/L (14-36); BILIRUBIN,DIRECT 0.1 mg/dL (0.0-0.4); BILIRUBIN,TOTAL 0.3 mg/dL (0.2-1.3); BLOOD UREA NITROGEN 6 mg/dL (7-20); CALCIUM 9.4 mg/dL (8.4-10.2); CARBON DIOXIDE 19 mmol/L (22-30); CHLORIDE 108 mmol/L (98-107); CREATININE RESULT 0.55 mg/dL (0.52-1.25); GLUCOSE 80 mg/dL (75-110); LDH 354 U/L (313-618); POTASSIUM 3.9 mmol/L (3.6-5.0); SODIUM 138.4 mmol/L (137-145); TOTAL PROTEIN 6.7 g/dL (6.3-8.2); URIC ACID 4.1 mg/dL (2.5-6.2)
--- NOTE | 2017-03-03 13:19 | Non Stress Test Report ---
Non Stress Test Datetime Report Generated by CPN: 03/03/2017 13:18 DEMOGRAPHIC EGA NST: 37.5 INDICATION Indication for Study: Ordered by Provider MONITORING Monitor Explained: Monitor Explained; Test Explained; Patient Verbalized Understanding Time on Monitor: 03/03/2017 12:08 Time off Monitor: 03/03/2017 12:28 NST Duration: 20 NST INTERVENTIONS NST Interventions: None Physician Notified NST: P. Galeana, CNM BABY A Movement : Present Contraction Frequency : none FHR Baseline : 125 Accelerations : 15X15 Decelerations : None Variability : Moderate 6-25bpm NST Review: Meets Criteria for Reactive NST NST Review and Verified By : Kym Larsen RN NST Results: Reactive NST REPORT Report Trigger: Send Report
--- NOTE | 2017-03-03 15:25 | L&D Discharge Summary ---
OB Discharge Summary Datetime Report Generated by CPN: 03/03/2017 15:25 DISCHARGE DIAGNOSIS Diagnosis/Symptoms: Reassuring Surveillance - Annotate Details Diagnoses/Symptoms Other: IUP at 37.5, reactive NST, no signs of pre-eclampsia Gestation: 37.4 Number of Babies in Womb: 1 Parity: 0 DIET/ACTIVITY/RESTRICTIONS Diet: Regular Activity: Normal Activity TEACHING/INSTRUCTIONS/REFERRALS Instructions Given To: patient, FOB Instructions Understood: Patient Verbalized Understanding; Support Person Verbalized Understanding Referrals: None Educational Materials- Other: kick counts DISCHARGE INFORMATION Discharged AMA: No Discharge Date/Time: 03/03/2017 13:18 Discharged To: Home Discharge Provider Name: Rena Galeana CNM Accompanied By: patient's mother, FOB Discharge Method: Ambulatory Condition: Stable FOLLOW UP INFORMATION Follow Up With: [facility] Follow Up On: As Scheduled Follow Up Phone Number: [facility] - GENERAL INSTR-CALL PROVIDER IF: Contractions: Contractions or cramps become more frequent than 8 in one hour or 4 in 20 minutes; Regular painful contractions every 5 minutes or less for one hour. Time your contractions from the beginning of one to the beginning of the next Pressure: Pressure in your vagina or lower abdomen that may feel like the baby is pushing down Period Like Cramps: Period-like cramps or low dull backache that may come and go Cramps/Diarrhea: Abdominal cramps that may be accompanied by diarrhea Gush of Fluid/Blood: Gush of fluid or blood from your vagina (it is normal to have spotting after vaginal exam or intercourse) Vaginal Discharge: Change in the type or amount of vaginal discharge Decreased Movement: Your baby is not moving as much as usual- 4 movements in 1 hour after drinking and resting on side Temperature: Temperature greater than 100.0(F) orally
== END 2017-03-03 13:18 | disposition home or self-care (01) ==
LOC: LC 11:52
PROVIDERS: ATTEND Obstetrics & Gynecology
PROC: 4A1HXCZ Monitoring of Products of Conception, Cardiac Rate, External Approach (ICD-10-PCS; principal; 2017-03-03)
DX: Z34.93 Encounter for supervision of normal pregnancy, unspecified, third trimester (principal); Z36 Encounter for antenatal screening of mother; Z3A.37 37 weeks gestation of pregnancy
CPT/HCPCS: 36415; 59025; 80053; 80307; 81001; 83615; 84550; 85025

== ENCOUNTER 2017-03-24 21:40 | Inpatient (IN) | payer MEDICAID ==
[2017-03-24 22:18] LABS: APPEARANCE,URINE CLOUDY; BILIRUBIN,URINE NEGATIVE (NEGATIVE); GLUCOSE, URINE NEGATIVE (NEGATIVE); KETONES,URINE NEGATIVE (NEGATIVE); LEUKOCYTE ESTERASE,URINE LARGE (NEGATIVE); NITRITE,URINE NEGATIVE (NEGATIVE); PROTEIN,URINE NEGATIVE (NEGATIVE); URINE SPECIFIC GRAVITY 1.014; UROBILINOGEN,URINE NEGATIVE mg/dL (<2.0)
[2017-03-24 22:36] LABS: URINE BARBITURATES SCREEN NEGATIVE; URINE METHADONE SCREEN NEGATIVE; URINE OPIATES LOW NEGATIVE; URINE PHENCYCLIDINE SCREEN NEGATIVE
[2017-03-24 23:31] LABS: ABSOLUTE BASOPHILS # (AUTO) 0.1 10^3/uL (0.0-0.2); ABSOLUTE LYMPHOCYTES (AUTO) 2.5 10^3/uL (0.5-4.7); ABSOLUTE NEUT (AUTO) 4.8 10^3/uL (1.7-8.2); BASOPHILS % (AUTO) 0.6 % (0-2); EOSINOPHILS % (AUTO) 0.4 % (0-6); HEMATOCRIT 35.7 % (36.0-47.0); HEMOGLOBIN 12.4 g/dL (12.0-15.5); HGB HCT DIFFERENCE 1.5; MEAN CORPUSCULAR HEMOGLOBIN 29.4 pg (27.0-33.4); MEAN CORPUSCULAR HGB CONC 34.7 g/dL (32.0-36.0); MEAN CORPUSCULAR VOLUME 85 fl (80-97); MONOCYTES % (AUTO) 11.3 % (3-13); RED BLOOD COUNT 4.21 10^6/uL (3.72-5.28); RED CELL DISTRIBUTION WIDTH 14.1 % (11.5-14.0); SEGMENTED NEUTROPHILS % (AUTO) 57.7 % (42-78); WHITE BLOOD COUNT 8.4 10^3/uL (4.0-10.5)
[2017-03-25] LABS: AMNISURE (ROM) POSITIVE (NEGATIVE)
[2017-03-25] MEDS ORDERED: OXYTOCIN/NORMAL SALINE 1,000 ML IV PRN ×2 (00:11→22:35)
[2017-03-25] MEDS ORDERED: CLINDAMYCIN 900 MG/D5W RTU 50 ML IV ONE ×2 (00:13→07:59)
[2017-03-25] MEDS ORDERED: CYCLOPHOSPHAMIDE 25 MG TABLET PO ONE (00:34)
[2017-03-25] MEDS ORDERED: ZOLPIDEM TARTRATE 5 MG TABLET PO ONE (00:35)
[2017-03-25] MEDS ORDERED: MISOPROSTOL 0.1 MG TABLET ONE ×3 (00:40→09:08)
[2017-03-25] MEDS ORDERED: ZOLPIDEM TARTRATE 5 MG TABLET ONE (00:40)
[2017-03-25] MEDS ORDERED: CLINDAMYCIN 900 MG/D5W RTU 50 ML IV SCH (01:30)
[2017-03-25] MEDS ORDERED: MISOPROSTOL 0.1 MG TABLET PO ONE (01:45)
[2017-03-25] MEDS: RINGERS SOLUTION,LACTATED 1,000 ML IV PRN ×2 (04:53→04:55)
[2017-03-25] MEDS ORDERED: CEFAZOLIN 2 GM/D5W RTU 2 GM/50 ML RTUPB IV ONE ×2 (08:18→21:11)
[2017-03-25] MEDS ORDERED: CEFAZOLIN 2 GM/D5W RTU 50 ML IV ONE (08:18)
[2017-03-25] MEDS ORDERED: ONDANSETRON HCL INJ/PF 4 MG/2 ML SDV ONE ×2 (09:08→21:26)
--- NOTE | 2017-03-25 13:15 | L&D Progress Notes ---
PROGRESS NOTES Datetime Report Generated by CPN: 03/25/2017 13:14 PROGRESS NOTE Impression: Normal Progression of Labor; Rupture of Membranes Procedures- Other: GDM Plan: Induction Vital Signs : Reviewed Comment: pt desires epidural..will add pit when comfortable with that VAGINAL EXAM Dilatation: 4 Dilatation: 1 Effacement: 100 Station: -1 MEMBRANES Amniotic Fluid Color: Clear FETUS A FHR Category: Category I : 40.5 SIGNATURE SIGNATURE: ,[id number] SIGNATURE: [id number] SIGNATURE: [id number] Signature: with User ID: [email or web address]
[2017-03-25] MEDS ORDERED: EPHEDRINE SULFATE INJ 50 MG/1 ML AMPULE ONE (13:55)
[2017-03-25] MEDS ORDERED: FENTANYL/BUPIVACAINE/NS/PF 200 MCG/100 ML RTUINJ EPI ONE (13:56)
[2017-03-25] MEDS ORDERED: BUPIVACAINE HCL 0.25 % INJ/PF (2.5 MG/1 ML) 30 ML VIAL ONE (13:56)
[2017-03-25] MEDS ORDERED: CEFAZOLIN 1 GM/D5W RTU 1 GM/50 ML RTUPB IV ONE (14:46)
--- NOTE | 2017-03-25 15:48 | L&D Progress Notes ---
PROGRESS NOTES Datetime Report Generated by CPN: 03/25/2017 15:48 PROGRESS NOTE Impression: Normal Progression of Labor Plan: Continue Present Management; Induction Informed Consent Obtained: Vaginal Delivery Comment: resting comfortably with epidural, Cat 1 strip FETUS C SIGNATURE: [id number] Assignment: Akilah Orozco MD Signature: with User ID: [email or web address] : with User ID: [email or web address]
[2017-03-25] MEDS ORDERED: OXYTOCIN/NORMAL SALINE 0 UNIT/0 ML RTUINJ ONE (16:08)
[2017-03-25] MEDS ORDERED: CEFAZOLIN 1 GM/D5W RTU 50 ML IV SCH (16:19)
--- NOTE | 2017-03-25 17:01 | L&D Progress Notes ---
PROGRESS NOTES Datetime Report Generated by CPN: 03/25/2017 17:00 PROGRESS NOTE Impression: Normal Progression of Labor Procedures: Intrauterine Pressure Catheter; Scalp Electrode Plan Other: pit off, oxygen on, ivfs, repositioned Informed Consent Obtained: Risks, Benefits and Alternatives Discussed Comment: Pt comfortable with epidural...in to eval due to ques of late vs early decel and internal monitors applied. Pit off, oxygen on, discussed r/b/a of if repetive lates remte from vag delivery. Will resume pit guided by mvus if no lates. FETUS C SIGNATURE: [id number];[id number] Signature: with User ID: [email or web address]
--- NOTE | 2017-03-25 19:13 | L&D Progress Notes ---
PROGRESS NOTES Datetime Report Generated by CPN: 03/25/2017 19:13 PROGRESS NOTE Impression: Normal Progression of Labor Comment: Pt with intermittent lates when attempted position infull Dave on other side. Now semi-Fowlers shows only earlies. Possible ROT. Currently not on pit but adequate mvus. Watch for arrest of labor/nonreassuring fhts. VAGINAL EXAM Dilatation: 9 Effacement: 100 Station: 0 FETUS C SIGNATURE: [id number];[id number] Signature: with User ID: [email or web address]
[2017-03-25] MEDS ORDERED: LIDOCAINE 1% INJ-PF (10 MG/ML) 30 ML SDV ONE (20:33)
[2017-03-25] MEDS ORDERED: MISOPROSTOL 0.2 MG TABLET ONE ×2 (20:33→21:40)
[2017-03-25] MEDS ORDERED: OXYTOCIN/NORMAL SALINE 20 UNIT/1,000 ML RTUINJ ONE ×2 (20:33→21:26)
--- NOTE | 2017-03-25 21:07 | L&D Progress Notes ---
PROGRESS NOTES Datetime Report Generated by CPN: 03/25/2017 21:07 PROGRESS NOTE Impression: Non-reassuring Heart Rate Informed Consent Obtained: Section Delivery Comment: Called to see pt with repetitve lates on 2 mu pit. Pit stopped, oxygen applied, repositioned and ivfs. Then complete but +1 station with molding OP. Discussed and consent obtained. FETUS C SIGNATURE: [id number];[id number] Signature: with User ID: [email or web address]
[2017-03-25] MEDS ORDERED: LIDOCAINE 2% INJ-PF (20 MG/ML) 10 ML AMPUL ONE ×2 (21:10→21:11)
[2017-03-25] MEDS ORDERED: CITRIC ACID/SODIUM CITRATE ORAL SOLN 15 ML UDCUP ONE (21:14)
[2017-03-25] MEDS ORDERED: OXYTOCIN 10 UNIT/ML VIAL ONE (21:26)
[2017-03-25] MEDS ORDERED: MIDAZOLAM 2 MG/2 ML INJ ONE (21:27)
[2017-03-25] MEDS ORDERED: METHYLERGONOVINE MALEATE INJ/PF 0.2 MG/1 ML AMPULE ONE (21:40)
[2017-03-25] MEDS ORDERED: CARBOPROST TROMETHAMINE INJ 250 MCG/1 ML AMPULE ONE (21:40)
[2017-03-25] MEDS ORDERED: ACETAMINOPHEN 100 ML IV ONE (22:27)
[2017-03-25] MEDS ORDERED: MEASLES,MUMPS&RUBELLA VACC/PF 0.5 ML VIAL SUBCUT PRN (22:35)
[2017-03-25] MEDS ORDERED: OXYCODONE-ACETAMINOPHEN 5-325 MG TABLET PO PRN ×2 (22:35)
[2017-03-25] MEDS ORDERED: DIPH/PERTUSS(ACELL)/TETANUS VAC/PF 0.5 ML SYR (>=10YO) IM PRN (22:35)
[2017-03-25] MEDS ORDERED: ACETAMINOPHEN 325 MG TABLET PO PRN (22:35)
[2017-03-25] MEDS ORDERED: SIMETHICONE 80 MG TAB.CHEW PO PRN (22:35)
[2017-03-25] MEDS ORDERED: PROMETHAZINE HCL INJ 25 MG/1 ML VIAL IV PRN (22:35)
[2017-03-25] MEDS ORDERED: MORPHINE SULFATE 10 MG/ML INJ IV PRN ×2 (22:35)
[2017-03-25] MEDS ORDERED: MEPERIDINE HCL/PF INJ 25 MG/1 ML DISP.SYRIN ONE (22:39)
--- NOTE | 2017-03-25 22:39 | Operative Report ---
Operative Report DATE OF SURGERY: 03/25/17 Operative Report: After discussing risks benefits and alternatives of the procedure and obtaining informed consent the patient was taken to the operating room with epidural anesthesia bolused. She was positioned in the dorsal supine position with a leftward tilt. She was then prepped and draped in the usual standard fashion. Pfannenstiel skin incision was made and the abdomen was entered in layers in the usual standard fashion. The C safe knife was used to make a low-transverse hysterotomy incision. The surgeon's hand was entered into the hysterotomy incision and the vertex elevated. Shoulders and body were delivered easily thereafter. Nasopharynx and oropharynx were bulb suctioned. Cord was clamped and cut. The was handed to pediatrics who were present. The placenta was manually extracted. The uterus was cleared of all clots and debris. The hysterotomy incision was closed with 0 Monocryl in a running locked fashion. A second layer closure was performed with 2-0 Vicryl. Excellent hemostasis was observed. The uterus tubes and ovaries were returned to the peritoneal cavity. The cavity was irrigated with saline and hemostasis was again assured. Peritoneum was closed with 2-0 Vicryl in a pursestring fashion. Rectus muscles were loosely reapproximated with interrupted stitches of 2-0 Vicryl. The subfascial space was inspected and noted to be hemostatic. The fascia was closed with #1 Vicryl. The subcutaneous tissues were irrigated and hemostasis assured. 3-O plain gut was used to reapproximate the subcutaneous space. The skin was closed in a subcuticular fashion with 4-0 Monocryl. An OpSite dressing was applied. The patient was taken to recovery in stable condition. All sponge needle lap and instrument counts were correct correct. PREOPERATIVE DIAGNOSIS: Intrauterine at 41 weeks with gestational diabetes and nonreassuring heart tones in second stage labor POSTOPERATIVE DIAGNOSIS: Intrauterine at 41 weeks with gestational diabetes and nonreassuring heart tones OPERATION: Primary low transverse cervical section SURGEON: KIMMY AGUILAR ANESTHESIA: Epidural TISSUE REMOVED OR ALTERED: Placenta ESTIMATED BLOOD LOSS: 600 mL INTRAOPERATIVE FINDINGS: Valadez male occiput posterior presentation with a very molded head, meconium-stained fluid. Uterus, tubes and ovaries appeared normal. Apgars were 9 and 9.
--- NOTE | 2017-03-26 00:06 | Delivery Summary ---
Del Sum A-C Datetime Report Generated by CPN: 03/26/2017 00:06 DELIVERY PERSONNEL DELIVERY PERSONNEL: [id number];[id number];[id number] Delivery Doctor:: Akilah Orozco MD Anesthesiologist:: Esteban Gonzalez MD PROFESSIONAL BONDSMAN:: Chris Grimaldo CRNA Labor and Delivery Nurse:: Teresa German RN Neonatal Nurse Practitioner:: SON Garcia Nursery Nurse:: Rochelle Carranza RN [employer]ing Worker/PULMONARY PHYSICIAN: Alejandro Cee CNA MATERNAL INFORMATION Delivery Anesthesia: Epidural Medications After Delivery: Pitocin Bolus-Please Comment Meds After Delivery Comment: Pitocin 20 units/1000 ML NS bolus following delivery; 1000 mcg NM placed in OR Maternal Complications: None LABOR SUMMARY EDC: 03/19/2017 00:00 No. Babies in Womb: 1 Attempted: No Labor Anesthesia: Epidural LABOR INFORMATION Reason for Induction: Post Dates; Maternal Diabetes Onset of Labor: 03/25/2017 13:08 Complete Dilatation: 03/25/2017 20:26 Cervical Ripening Agents: Cytotec @ Oxytocin: Augmentation Group B Beta Strep: positive Antibiotics # of Doses: 5 Antibiotics Time of Last Dose: 2114 Name of Antibiotic Given: Clinamycin/Ancef Steroids Given: None Reason Steroids Not Administered: Not Applicable MEMBRANES Membranes Rupture Method: Spontaneous Rupture of Membranes: 03/24/2017 23:33 Length of Rupture (hr): 22.03 Amniotic Fluid Color: Light Meconium Amniotic Fluid Amount: Scant Amniotic Fluid Odor: Normal STAGES OF LABOR Stage 1 hr: 7 Stage 1 min: 18 Stage 2 hr: 1 Stage 2 min: 9 Stage 3 hr: 0 Stage 3 min: 1 Total Time in Labor hr: 8 Total Time in Labor min: 28 VAGINAL DELIVERY Episiotomy: None Laceration Extension: N/A Laceration Repair: Not Applicable Sponge Count Correct: N/A Sharps Count Correct: N/A CSECTION DELIVERY Primary Indication: Nonreassuring Status Secondary Indication: N/A CSection Urgency: Non-Scheduled CSection Incidence: Primary Labor: Labor Elective: Nonelective CSection Incision: Lower Uterine Transverse BABY A INFORMATION Infant Delivery Date/Time: 03/25/2017 21:35 Method of Delivery: Born in Route : No : N/A Forceps: N/A Vacuum Extraction: N/A Shoulder Dystocia : No PRESENTATION/POSITION BABY A Presentation: Cephalic Cephalic Presentation: Vertex Breech Presentation: N/A PLACENTA INFORMATION BABY A Placenta Delivery Time : 03/25/2017 21:36 Placenta Method of Delivery: Manual Removal Placenta Status: Delivered SCORES BABY A Heart Rate 1 min: >100 bpm Resp Effort 1 min: Good Cry Reflex Irritability 1 min: Cough or Sneeze or Pulls Away Muscle Tone 1 min: Active Motion Color 1 min: Body [place], Extremities Blue Resuscitation Effort 1 min: Tactile Stimulation SCORE 1 MIN: 9 Heart Rate 5 min: >100 bpm Resp Effort 5 min: Good Cry Reflex Irritability 5 min: Cough or Sneeze or Pulls Away Muscle Tone 5 min: Active Motion Color 5 min: Body [place], Extremities Blue SCORE 5 MIN: 9 INFANT INFORMATION BABY A Gestational Age at Delivery: 40.6 Gestational Status: Full Term- 39- 40.6 Weeks Infant Outcome : Liveborn Condition : Stable Sex: Male IDENTIFICATION BABY A Infant Verification Date/Time: 03/25/2017 21:46 ID Band Number: [id number] Mother's Name Verified: Yes Infant RN Verifying Infant: SBjorn Munroe, RN Additional Verifying Personnel: Anne Marie Cee CNA WEIGHT/LENGTH BABY A Birthweight (gm): 2875 Weight (lb): 6 Weight (oz): 5 Length (in): 18.75 Length (cm): 47.63 CORD INFORMATION BABY A No. Cord Vessels: 3 Nuchal Cord : N/A Cord Blood Taken: Yes-For Eval (Mom's Blood Type - or O+) Suction: Mouth; Nose ASSESSMENT BABY A Complications: Multiple Late Decels; Multiple Variable Decels Physical Findings at Delivery: Molding of the Head Respirations: Appears Normal Skin to Skin: No Grocery Clerk/ALS Called : Yes Infant Care By: Yves Carranza RN Transferred To: [facility]
--- NOTE | 2017-03-26 00:45 | Admission Physical ---
Datetime Report Generated by CPN: 03/26/2017 00:44 CURRENT ADMISSION Hx Assessment: The History has been Reviewed and is Current Chief Complaint: Scheduled Induction of Labor Indication for Induction: Postterm Admit Plan: Admit to Unit; Initiate Labor Induction Protocol ALLERGIES Medication Allergies: Yes Medication Allergies: Penicillins/MO/Hives (03/25/2017) Medication Allergies: Penicillins/MO/Hives (03/03/2017) Medication Allergies: Penicillins/MO/Hives (02/24/2017) Medication Allergies: Penicillins/MO/Hives (02/23/2017) Latex: No Latex Allergies Food Allergies: denies Environmental Allergies: denies OBSTETRICAL HISTORY EDC: 03/19/2017 00:00 : 1 Para: 0 Term: 0 : 0 SAB: 0 IAB: 0 Ectopic: 0 Livin Cesareans: 0 VBACs: 0 Multiple Births: 0 Gestational Diabetes: Yes Rh Sensitization: No Incompetent Cervix: No JALEESA: No Infertility: No ART Treatment: No Uterine Anomaly: No IUGR: No Hx Previous C/S: No Macrosomia: No Hx Loss/Stillborn: No PIH: No Hx : No Placenta Previa/Abruption: No Depression/PP Depression: No PTL/PROM: No Post Hemorrhage: No Current Procedures: Ultrasound; NST Obstetrical History Comments: G1: current, gdm diet controlled SEE RECORDS Alcohol: No Marijuana : No Cocaine: No Other Illicit Drugs: No Cigarettes: Never Smoker. [id number] MEDICAL HISTORY Diabetes: Yes Diabetes Type: Gestational Diabetes Blood Transfusion: No Pulmonary Disease (Asthma, TB): No Breast Disease: No Hypertension: No Box Printer Surgery: No Heart Disease: No Hosp/Surgery: No Autoimmune Disorder: No Anesthetic Complications: No Kidney Disease: No Abnormal Pap Smear: No Neuro/Epilepsy: No Psychiatric Disorders: No Other Medical Diseases: No Hepatitis/Liver Disease: No Significant Family History: No Varicosities/Phlebitis: No Trauma/Violence : No Thyroid Dysfunction: No INFECTIOUS HISTORY Gonorrhea: No Genital Herpes: No Chlamydia: No Tuberculosis: No Syphilis: No Hepatitis: No HIV/AIDS Exposure: No Rash or Viral Illness: No HPV: No PHYSICAL EXAM General: Normal HEENT: Normal Neurologic: Normal Thyroid: Normal Heart: Normal Lungs: Normal Breast: Deferred Back: Normal Abdomen: Normal Genitourinary Exam: Normal Extremities: Normal DTRs: Normal Pelvic Type: Adequate Physical Exam Comments: GDM Obesity GBS + Vital Signs: Reviewed VAGINAL EXAM Dilatation: 9 Dilatation: 4 Dilatation: 1 Effacement: 100 Effacement: 100 Station: 0 Station: -1 MEMBRANES Amniotic Fluid Color: Clear FETUS A EGA: 40.6 Monitoring: External US Decelerations: None FHR Category: Category I Admit Comment: Admitted to L_D for cytotec ripening and Pitocin IOL for postdates, 40+ 5 GBS + Irregular cramping, Cat 1 strip Pt aware of POC family at BS PLANS FOR LABOR AND DELIVERY Labor and Delivery: None Pain Management: Epidural Feeding Preference: Formula Benefit of Breast Feed Discussed: Yes Circumcision: Yes INFORMED CONSENT Informed Consent Obtained: Section Delivery Informed Consent Obtained: Risks, Benefits and Alternatives Discussed Informed Consent Obtained: Vaginal Delivery Assignment: Akilah Orozco MD Signature: with User ID: [email or web address] : with User ID: [email or web address]
[2017-03-26] MEDS ORDERED: HYDROMORPHONE HCL INJ/PF 2 MG/ML AMPULE ONE (01:16)
[2017-03-26] MEDS: IBUPROFEN 800 MG TABLET PO SCH ×5 (01:19→23:55)
[2017-03-26] MEDS ORDERED: HYDROMORPHONE HCL INJ/PF 2 MG/ML AMPULE IV PRN (01:25)
[2017-03-26] MEDS ORDERED: RINGERS SOLUTION,LACTATED 1,000 ML IV PRN (02:58)
[2017-03-26] MEDS: CEFAZOLIN 2 GM/D5W RTU 2 GM/50 ML RTUPB IV SCH ×2 (05:31→13:57)
[2017-03-26 06:54] LABS: HEMATOCRIT 31.1 % (36.0-47.0); HEMOGLOBIN 10.7 g/dL (12.0-15.5); MEAN CORPUSCULAR HEMOGLOBIN 29.4 pg (27.0-33.4); MEAN CORPUSCULAR HGB CONC 34.4 g/dL (32.0-36.0); MEAN CORPUSCULAR VOLUME 86 fl (80-97); RED BLOOD COUNT 3.63 10^6/uL (3.72-5.28); RED CELL DISTRIBUTION WIDTH 14.1 % (11.5-14.0); WHITE BLOOD COUNT 14.6 10^3/uL (4.0-10.5)
--- NOTE | 2017-03-26 08:43 | PDOC PROGRESS REPORT ---
Subjective-OB Subjective: Post Delivery Day: 27 year old. Denies any needs at this time Doing well, no c/o, pain under control, eating well, pain under control, larkin remains, abd soft, + gas Physical Exam (OB) Vital Signs: Temp Pulse Resp BP Pulse Ox 98.2 F 66 18 132/73 H 99 03/26/17 07:48 03/26/17 07:48 03/26/17 07:48 03/26/17 07:48 03/26/17 07:48 Intake & Output 03/25/17 03/26/17 03/27/17 06:59 06:59 06:59 Output Total 550 Balance -550 Weight 108.2 kg - PIH/Pre-Eclampsia DTR's: 2 + Clonus: Negative Headache: Absent Epigastric Pain: No Visual Changes: No - Incision: Dressing Closure Type: Surgical Glue - Lochia Lochia Amount: Small 10-25 ml Lochia Color: Rubra/Red - Abdomen Description: Soft, Round Hernia Present: No Fundal Description: Firm, Midline Fundal Height: u/u - u/2 Objective-Diagnostic Laboratory: 03/26/17 06:28 03/26/17 06:28 WBC 14.6 H RBC 3.63 L Hgb 10.7 L Hct 31.1 L MCV 86 MCH 29.4 MCHC 34.4 RDW 14.1 H Plt Count 212 Assessment and Plan(PN) - Assessment and Plan (1) Gestational diabetes Qualifiers: Gestational diabetes mellitus control: diet-controlled Is this a current diagnosis for this admission?: Yes (2) Delivery by emergency caesarean section Is this a current diagnosis for this admission?: Yes - Time Spent with Patient Time with patient: Less than 15 minutes Medications reviewed and adjusted accordingly: Yes - Disposition Anticipated Discharge: Home Within: within 24 hours
[2017-03-26] MEDS: PRENATAL VITAMIN W-O CA NO5/FE FUMARATE/FA CAPSULE PO SCH (09:31)
[2017-03-26] MEDS: DOCUSATE SODIUM 100 MG CAPSULE PO SCH ×2 (09:31→17:17)
[2017-03-27] MEDS: IBUPROFEN 800 MG TABLET PO SCH ×4 (05:21→23:48)
[2017-03-27] MEDS: DOCUSATE SODIUM 100 MG CAPSULE PO SCH ×2 (09:26→17:25)
[2017-03-27] MEDS: PRENATAL VITAMIN W-O CA NO5/FE FUMARATE/FA CAPSULE PO SCH (09:26)
--- NOTE | 2017-03-27 10:20 | PDOC PROGRESS REPORT ---
Subjective-OB Subjective: Post Delivery Day: 27 year old. Denies any needs at this time Doing well, ready to go home,scant lochia,diet taken well, no nausea, ambulating , passing gas Physical Exam (OB) Vital Signs: Temp Pulse Resp BP Pulse Ox 98.7 F 80 18 132/85 H 96 03/27/17 07:47 03/27/17 07:47 03/27/17 07:47 03/27/17 07:47 03/27/17 07:47 Intake & Output 03/26/17 03/27/17 03/28/17 06:59 06:59 06:59 Intake Total 560 Output Total 550 800 Balance -550 -240 - PIH/Pre-Eclampsia DTR's: 2 + Clonus: Negative Headache: Absent Epigastric Pain: No Visual Changes: No - Dressing Removed: No Incision: Dressing, Well Approximated Closure Type: Surgical Glue - Lochia Lochia Amount: Scant < 10 ml Lochia Color: Rubra/Red - Abdomen Description: Tender, Soft, Round Hernia Present: No Fundal Description: Firm, Midline Fundal Height: u/u - u/2 Objective-Diagnostic Laboratory: 03/26/17 06:28 Assessment and Plan(PN) - Assessment and Plan (1) Gestational diabetes Qualifiers: Gestational diabetes mellitus control: diet-controlled Is this a current diagnosis for this admission?: Yes (2) Delivery by emergency caesarean section Is this a current diagnosis for this admission?: Yes - Time Spent with Patient Time with patient: Less than 15 minutes Medications reviewed and adjusted accordingly: Yes - Disposition Anticipated Discharge: Home Within: Other Disposition: home today
--- NOTE | 2017-03-27 10:25 | PDOC DISCHARGE SUMMARY ---
Final Diagnosis Discharge Date: 03/27/17 - Final Diagnosis (1) Gestational diabetes Is this a current diagnosis for this admission?: Yes (2) Delivery by emergency caesarean section Is this a current diagnosis for this admission?: Yes Discharge Data - Discharge Medication Home Medications: Ferrous Sulfate [Iron] 325 mg PO DAILY 02/23/17 Vit W-Ca,Fe,FA(<1 mg) [ Vitamins] 1 each PO DAILY 02/23/17 Ibuprofen [Motrin 800 mg Tablet] 800 mg PO Q6 #30 tablet 03/27/17 Oxycodone HCl/Acetaminophen [Percocet 5-325 mg Tablet] 1 tab PO Q4HP PRN #30 tablet 03/27/17 Gestational Age: 40.6 Reason(s) for Admission: Induction of Labor, PROM, Gestional Diabetes, Group B Strep Positive Procedures: NST, Ultrasound Intrapartum Procedure(s): : Low Cervical, Transverse - [place] Data Baby 1 Male at 1 minute: 9 at 5 minutes: 9 Weight: 2.863 kg Home with Mother: Yes Complications: No - Diagnosis Test Laboratory: Temp Pulse Resp BP Pulse Ox 98.7 F 80 18 132/85 H 96 03/27/17 07:47 03/27/17 07:47 03/27/17 07:47 03/27/17 07:47 03/27/17 07:47 03/24/17 03/24/17 03/26/17 21:45 23:14 06:28 RBC 4.21 3.63 L Hgb 12.4 10.7 L Hct 35.7 L 31.1 L Urine Opiates Screen NEGATIVE - Discharge information/Instructions Discharge Activity: Activity As Tolerated, No Lifting Over 10 Pounds, Pelvic Rest Discharge Diet: As Tolerated Disposition: HOME, SELF-CARE Follow up with: [facility] in: 1, Weeks
[2017-03-28] MEDS: IBUPROFEN 800 MG TABLET PO SCH ×2 (06:25→12:27)
[2017-03-28] MEDS: DOCUSATE SODIUM 100 MG CAPSULE PO SCH (09:06)
[2017-03-28] MEDS: PRENATAL VITAMIN W-O CA NO5/FE FUMARATE/FA CAPSULE PO SCH (09:06)
--- NOTE | 2017-03-28 09:38 | PDOC PROGRESS REPORT ---
Subjective-OB Subjective: Post Delivery Day: 27 year old. Denies any needs at this time. Ready to go home. Physical Exam (OB) Vital Signs: Temp Pulse Resp BP Pulse Ox 98.1 F 91 20 132/77 H 100 03/28/17 07:15 03/28/17 07:15 03/28/17 07:15 03/28/17 07:15 03/28/17 07:15 Intake & Output 03/27/17 03/28/17 03/29/17 06:59 06:59 06:59 Intake Total 560 Output Total 800 Balance -240 Baby 1 Male 2.863 kg - PIH/Pre-Eclampsia DTR's: 2 + Clonus: Negative Headache: Absent Epigastric Pain: No Visual Changes: No - Dressing Removed: Yes Incision: Dressing Closure Type: Sutures - Lochia Lochia Amount: Small 10-25 ml Lochia Color: Rubra/Red - Abdomen Description: Soft, Round Hernia Present: No Bowel Sounds: Normoactive Flatus Presence: Present Stool: Yes Fundal Description: Firm Fundal Height: u/u - u/2 Objective-Diagnostic Laboratory: 03/26/17 06:28 Assessment and Plan(PN) - Time Spent with Patient Medications reviewed and adjusted accordingly: Yes - Disposition Anticipated Discharge: Home
--- NOTE | 2017-03-28 09:43 | PDOC DISCHARGE SUMMARY ---
Final Diagnosis Discharge Date: 03/28/17 - Final Diagnosis (1) Non-reassuring electronic monitoring tracing Is this a current diagnosis for this admission?: Yes (2) Delivery by emergency caesarean section Is this a current diagnosis for this admission?: Yes (3) Gestational diabetes Is this a current diagnosis for this admission?: Yes (4) Obesity Is this a current diagnosis for this admission?: Yes (5) Positive GBS test Is this a current diagnosis for this admission?: Yes Discharge Data - Discharge Medication Home Medications: Ferrous Sulfate [Iron] 325 mg PO DAILY 02/23/17 Vit W-Ca,Fe,FA(<1 mg) [ Vitamins] 1 each PO DAILY 02/23/17 Ibuprofen [Motrin 800 mg Tablet] 800 mg PO Q6 #30 tablet 03/27/17 Oxycodone HCl/Acetaminophen [Percocet 5-325 mg Tablet] 1 tab PO Q4HP PRN #30 tablet 03/27/17 Gestational Age: 40.6 wks Reason(s) for Admission: Onset of Labor Procedures: Ultrasound Intrapartum Procedure(s): : Low Cervical, Transverse - [place] Data Baby 1 Male at 1 minute: 9 at 5 minutes: 9 Weight: 2.863 kg Home with Mother: Yes Complications: No - Diagnosis Test Laboratory: Temp Pulse Resp BP Pulse Ox 98.1 F 91 20 132/77 H 100 03/28/17 07:15 03/28/17 07:15 03/28/17 07:15 03/28/17 07:15 03/28/17 07:15 03/24/17 03/24/17 03/26/17 21:45 23:14 06:28 RBC 4.21 3.63 L Hgb 12.4 10.7 L Hct 35.7 L 31.1 L Urine Opiates Screen NEGATIVE - Discharge information/Instructions Discharge Activity: Activity As Tolerated, Balance Activity w/Rest, No Driving, No Lifting Over 10 Pounds, No Lifting/Push/Pulling, Pelvic Rest, Slowly Increase Activity, No tub bath Discharge Diet: Regular Disposition: HOME, SELF-CARE Follow up with: [facility] in: 1, Weeks
[2017-03-28 10:09] VITALS: BP 122/68
== END 2017-03-28 14:57 | disposition home or self-care (01) | DRG 766 ==
LOC: LC 21:40 → LR 22:52 → 2S 03-26 00:25
PROVIDERS: ADMIT Obstetrics & Gynecology; ATTEND Specialist
PROC: 4A1HXCZ Monitoring of Products of Conception, Cardiac Rate, External Approach (ICD-10-PCS; 2017-03-24)
PROC: 10D00Z1 Extraction of Products of Conception, Low, Open Approach (ICD-10-PCS; principal; 2017-03-25)
PROC: 3E033VJ Introduction of Other Hormone into Peripheral Vein, Percutaneous Approach (ICD-10-PCS; 2017-03-25)
PROC: 10H07YZ Insertion of Other Device into Products of Conception, Via Natural or Artificial Opening (ICD-10-PCS; 2017-03-25)
PROC: 4A1H7CZ Monitoring of Products of Conception, Cardiac Rate, Via Natural or Artificial Opening (ICD-10-PCS; 2017-03-25)
DX: O76 Abnormality in fetal heart rate and rhythm complicating labor and delivery (principal); O48.0 Post-term pregnancy; O24.420 Gestational diabetes mellitus in childbirth, diet controlled; O77.0 Labor and delivery complicated by meconium in amniotic fluid; O99.214 Obesity complicating childbirth; O99.824 Streptococcus B carrier state complicating childbirth; Z37.0 Single live birth; Z3A.41 41 weeks gestation of pregnancy; Z68.39 Body mass index [BMI] 39.0-39.9, adult
CPT/HCPCS: 1961; 36415; 80307; 81005; 82962; 84112; 85025; 85027; 86592; 86850; 86900; 86901; 88307; 94760; 94799; J0131; J0690; J1170; J2175; J2210; J2250; J2405; J2590; J3490